=== PATIENT | male | born 1955 | race Caucasian/White ===

== ENCOUNTER 2025-07-11 14:47 | Inpatient (IN) | payer MEDICARE ==
[~2025-07-11] VITALS: Ht 180.3 cm; Wt 77.0 kg
[~2025-07-11 14:47] MED LIST: HYDMOR2 PO; LEVSOD25 PO; LOSHYD PO; OLME20-12. PO; PROM25 PO
[2025-07-11 15:25] LABS: BASOPHILS ABSOLUTE AUTO 0.11 K/mm3 (0.00-0.23); BASOPHILS PERCENT AUTO 1 % (0-2); EOSINOPHILS ABSOLUTE AUTO 0.00 K/mm3 (0.00-0.68); EOSINOPHILS PERCENT AUTO 0 % (0-6); Hematocrit 46.3 % (37.0-53.0); Hemoglobin 15.4 g/dL (13.5-17.5); IMMATURE GRAN ABSOLUTE AUTO 0.26 K/mm3 (0.00-0.10); IMMATURE GRAN PERCENT AUTO 2 % (0-1); LYMPHOCYTES ABSOLUTE AUTO 0.94 K/mm3 (0.84-5.20); LYMPHOCYTES PERCENT AUTO 6 % (21-46); MONOCYTES ABSOLUTE AUTO 1.08 K/mm3 (0.16-1.47); MONOCYTES PERCENT AUTO 7 % (4-13); Mean Corpuscular HGB Conc 33.3 g/dL (31.5-36.5); Mean Corpuscular Volume 95 fL (80-100); NEUTROPHILS ABSOLUTE AUTO 13.43 K/mm3 (1.96-9.15); NEUTROPHILS PERCENT AUTO 85 % (41-73); NRBC ABSOLUTE 0.00 K/mm3 (0.00-0.02); NRBC Auto 0.0 /100 WBC (0.0-0.2); Platelet Count 334 K/mm3 (150-400); RDW Coefficient Variation 12.2 % (11.7-14.2); RDW Standard Deviation 42.6 fL (35.1-46.3)
[2025-07-11 15:39] LABS: Alanine Aminotransfer (ALT/SGP 21.0 U/L (12-78); Albumin, Blood 3.7 g/dL (3.4-5.0); Albumin/Globulin Ratio 0.8 (0.8-1.8); Aspartate Aminotrans (AST/SGOT 11.0 U/L (12-37); Bilirubin, Direct 0.4 mg/dL (0.0-0.3); Bilirubin, Indirect 0.7 mg/dL (0.1-0.7); Bilirubin, Total 1.1 mg/dL (0.1-1.0); Blood Urea Nitrogen 27.0 mg/dL (8-24); Calcium, Blood 9.4 mg/dL (8.5-10.1); Chloride, Blood 100.0 mmol/L (98-108); Creatinine, Blood 0.9 mg/dL (0.60-1.20); Globulin, Blood 4.7 g/dL (2.2-4.0); Glucose, Blood 446.0 mg/dL (70-99); Magnesium, Blood 2.6 mg/dL (1.6-2.4); Phosphorus, Blood 4.4 mg/dL (2.5-4.9); Potassium, Blood 4.7 mmol/L (3.5-5.5); Sodium, Blood 130.0 mmol/L (136-145); Total Protein, Blood 8.4 g/dL (6.4-8.2)
[2025-07-11 15:44] LABS: Prothrombin Time Results 11.3 Sec (9.7-11.5)
[2025-07-11 15:46] LABS: Anion Gap 30.0 mmol/L (3-11); CO2, Blood 5.0 mmol/L (21-32)
[2025-07-11] MEDS ORDERED: NS 1,000 ML IV SCH (16:00)
[2025-07-11 16:30] LABS: pH Blood Venous 7.01 (7.34-7.37)
[2025-07-11 16:30] LABS: Source, Urine Foley catheter
[2025-07-11 16:50] LABS: Bilirubin, Urine Neg (Neg); Glucose Qualitative, Urine 4+ (Neg); Ketones, Urine 4+ (Neg); Leukocyte Esterase, Urine Neg (Neg); Protein, Urine 2+ (Neg); Specific Gravity, Urine 1.025 (1.003-1.022); Urobilinogen, Urine NORM (Normal)
[2025-07-11 17:01] LABS: Color, Urine Pale Yellow (P-Yellow)
[2025-07-11 17:03] LABS: Red Blood Cells, Urine 0-2 /hpf (0-2); White Blood Cells, Urine 0-2 /hpf (0-5)
[2025-07-11] MEDS ORDERED: Insulin Human Regular 100 UNIT in NS 100 ML IV SCH (17:40)
[2025-07-11] MEDS ORDERED: FLU VACC TS2025(65UP)/MF59C/PF 45 MCG/0.5 ML SYRINGE IM SCH (18:45)
[2025-07-11] MEDS ORDERED: Ondansetron HCl 2 MG / ML 2ML Vial IV PRN (18:45)
[2025-07-11] MEDS ORDERED: Labetalol HCL 5 MG/ML 4ML Injection (Single Dose) IV PRN (18:50)
[2025-07-11 20:00] VITALS: BP 123/102
[2025-07-11 20:52] LABS: Anion Gap 25.0 mmol/L (3-11); Blood Urea Nitrogen 27.0 mg/dL (8-24); CO2, Blood 8.0 mmol/L (21-32); Calcium, Blood 9.6 mg/dL (8.5-10.1); Chloride, Blood 108.0 mmol/L (98-108); Creatinine, Blood 0.93 mg/dL (0.60-1.20); Glucose, Blood 327.0 mg/dL (70-99); Potassium, Blood 3.7 mmol/L (3.5-5.5); Sodium, Blood 137.0 mmol/L (136-145)
[2025-07-11 21:00] VITALS: BP 119/77
[2025-07-11 21:21] LABS: pH Blood Venous 7.16 (7.34-7.37)
[2025-07-11 22:00] VITALS: BP 134/70
[2025-07-11] MEDS ORDERED: D5W-1/2NS 1,000 ML IV SCH (22:20)
[2025-07-11 23:00] VITALS: BP 112/73
[2025-07-11 23:44] LABS: Anion Gap 15.0 mmol/L (3-11); Blood Urea Nitrogen 25.0 mg/dL (8-24); CO2, Blood 15.0 mmol/L (21-32); Calcium, Blood 9.1 mg/dL (8.5-10.1); Chloride, Blood 114.0 mmol/L (98-108); Creatinine, Blood 0.83 mg/dL (0.60-1.20); Glucose, Blood 194.0 mg/dL (70-99); Potassium, Blood 3.6 mmol/L (3.5-5.5); Sodium, Blood 140.0 mmol/L (136-145)
[2025-07-12] VITALS (21 sets, daily range): BP systolic 87–153; BP diastolic 52–75
[2025-07-12 04:23] LABS: Influenza A/2009-H1 Not Detected (NOT DETECT); SARS-Cov-2 (COVID-19), BioFire Detected (NOT DETECT)
[2025-07-12 05:35] LABS: BASOPHILS ABSOLUTE AUTO 0.03 K/mm3 (0.00-0.23); BASOPHILS PERCENT AUTO 0 % (0-2); EOSINOPHILS ABSOLUTE AUTO 0.00 K/mm3 (0.00-0.68); EOSINOPHILS PERCENT AUTO 0 % (0-6); Hematocrit 35.3 % (37.0-53.0); Hemoglobin 12.5 g/dL (13.5-17.5); IMMATURE GRAN ABSOLUTE AUTO 0.07 K/mm3 (0.00-0.10); IMMATURE GRAN PERCENT AUTO 1 % (0-1); LYMPHOCYTES ABSOLUTE AUTO 0.65 K/mm3 (0.84-5.20); LYMPHOCYTES PERCENT AUTO 8 % (21-46); MONOCYTES ABSOLUTE AUTO 0.59 K/mm3 (0.16-1.47); MONOCYTES PERCENT AUTO 7 % (4-13); Mean Corpuscular HGB Conc 35.4 g/dL (31.5-36.5); Mean Corpuscular Volume 90 fL (80-100); NEUTROPHILS ABSOLUTE AUTO 6.63 K/mm3 (1.96-9.15); NEUTROPHILS PERCENT AUTO 83 % (41-73); NRBC ABSOLUTE 0.00 K/mm3 (0.00-0.02); NRBC Auto 0.0 /100 WBC (0.0-0.2); Platelet Count 209 K/mm3 (150-400); RDW Coefficient Variation 12.3 % (11.7-14.2); RDW Standard Deviation 40.2 fL (35.1-46.3)
[2025-07-12 05:56] LABS: Anion Gap 9.0 mmol/L (3-11); Blood Urea Nitrogen 19.0 mg/dL (8-24); CO2, Blood 20.0 mmol/L (21-32); Calcium, Blood 8.8 mg/dL (8.5-10.1); Chloride, Blood 116.0 mmol/L (98-108); Creatinine, Blood 0.69 mg/dL (0.60-1.20); Glucose, Blood 175.0 mg/dL (70-99); Potassium, Blood 3.5 mmol/L (3.5-5.5); Sodium, Blood 141.0 mmol/L (136-145)
[2025-07-12 06:08] LABS: CHOL/HDL RATIO 2.6; Cholesterol 169 mg/dL (50-200); HDL Cholesterol 64 mg/dL (>39); LDL/HDL RATIO 1.3; Low Density Lipoprotein Chol 83 mg/dL (0-110); Magnesium, Blood 2.3 mg/dL (1.6-2.4); Triglycerides 109 mg/dL (30-160); Very Low Density Lipoprot Chol 21 mg/dL (6-32)
--- NOTE | 2025-07-12 07:00 | NUR ---
SHIFT SUMMARY PT LYING IN BED IN NO APPARENT DISTRESS. ALERT AND ORIENTED, I THINK, THOUGH THE PT WILL NOT ANSWER ALL QUESTIONS. AFEBRILE. NO PAIN. PT HAS COVID. PRECAUTIONS INSTITUTED. SINUS RHYTHM IN THE 80'S WITH STABLE BP. RA PRODUCING SAT > 92%. COUGH PRESENT. NOTHING EXPECTORATED YET. NO CHEST PAIN OR SOB OR BM. WANG IN PLACE, DRAINING MILKY ORANGE URINE ALL OF THE SUDDEN. BEDSIDE SHIFT REPORT GIVEN TO DAY RN.
--- NOTE | 2025-07-12 08:00 | NUR ---
ASSUMPTION OF CARE RECEIVED REPORT FROM [facility] NURSE. PT IS RESTING WITH EYES CLOSED. PT WILL OPEN EYES TO VERBAL STIMULI AND TRACK BUT DOES NOT FOLLOW ANY COMMANDS. PT IN NSR WITH HR IN 70-80S, MAP >65. PT DENIES CHEST PAIN. PT ON RA, SPO2 >92%. PT COUGHS OCCASIONALLY, NONPRODUCTIVE. PT DENIES ABD PAIN. PT HAS WANG CATH IN PLACE PATENT AND DRAINING TO GRAVITY, DR. AWARE. INSULIN AND D5 DRIP INFUSING IN PIV. SCDS IN PLACE. CALL LIGHT WITHIN REACH WITH NO NEEDS EXPRESSED AT THIS TIME.
[2025-07-12] MEDS ORDERED: Enoxaparin 40 MG/0.4 ML SYR SC SCH (09:00)
[2025-07-12 10:58] LABS: Alanine Aminotransfer (ALT/SGP 14.0 U/L (12-78); Albumin, Blood 2.6 g/dL (3.4-5.0); Albumin/Globulin Ratio 0.7 (0.8-1.8); Anion Gap 8.0 mmol/L (3-11); Aspartate Aminotrans (AST/SGOT 10.0 U/L (12-37); Bilirubin, Total 0.6 mg/dL (0.1-1.0); Blood Urea Nitrogen 16.0 mg/dL (8-24); CO2, Blood 22.0 mmol/L (21-32); Calcium, Blood 9.0 mg/dL (8.5-10.1); Chloride, Blood 114.0 mmol/L (98-108); Creatinine, Blood 0.77 mg/dL (0.60-1.20); Globulin, Blood 3.7 g/dL (2.2-4.0); Glucose, Blood 160.0 mg/dL (70-99); Potassium, Blood 3.4 mmol/L (3.5-5.5); Sodium, Blood 141.0 mmol/L (136-145); Total Protein, Blood 6.3 g/dL (6.4-8.2)
--- NOTE | 2025-07-12 18:17 | NUR ---
SHIFT SUMMARY PT HAS BEEN RESTING WITH EYES CLOSED T/O SHIFT. PT WILL AWAKE TO VERBAL STIMULI. PT WILL OPEN EYES, TRACK NURSE AND NOD HIS HEAD, BUT WILL NOT VERBALLY ANSWER QUESTIONS OR FOLLOW COMMANDS. PT IS ON RA, SPO2 >90%. PT DENIES SOB. HR IN 70-80S, MAP >65. PT HAD EPISODES OF TACHYCARDIA INTO 150S, NOT SUSTAINED. PT HAD 5 BEATS OF VTACH, NOT SUSTAINED. EPISODE IN CHART. PT DID NOT HAVE ANY TACHYCARDIA OR ARRYTHMIA ONCE POTASSIUM WAS REPLACED. PT DOES NOT VERBALIZE/INDICATE A SPECIFIC PLACE OF DISCOMFORT BUT RETRACTS/STARTLES FROM EVEN LIGHT TOUCH. PT HAS WANG CATH IN PLACE, PATENT AND DRAINING TO GRAVITY. OUTPUT IS ORANGE AND MILKY, DR WAHL. TMAX OF 100.4, DR WAHL. BLOOD CULTURES WERE DRAWN. INSULIN DRIP T/O SHIFT. SCDS IN PLACE. TWO PIVS, WNL. DAUGHTER WAS AT BEDSIDE FOR PORTION OF SHIFT. CALL LIGHT WITHIN REACH WITH NO NEEDS EXPRESSED AT THIS TIME.
[2025-07-13] VITALS (15 sets, daily range): BP systolic 101–138; BP diastolic 64–81
[2025-07-13 01:57] LABS: BASOPHILS ABSOLUTE AUTO 0.02 K/mm3 (0.00-0.23); BASOPHILS PERCENT AUTO 0 % (0-2); EOSINOPHILS ABSOLUTE AUTO 0.01 K/mm3 (0.00-0.68); EOSINOPHILS PERCENT AUTO 0 % (0-6); Hematocrit 34.5 % (37.0-53.0); Hemoglobin 12.3 g/dL (13.5-17.5); IMMATURE GRAN ABSOLUTE AUTO 0.08 K/mm3 (0.00-0.10); IMMATURE GRAN PERCENT AUTO 1 % (0-1); LYMPHOCYTES ABSOLUTE AUTO 0.61 K/mm3 (0.84-5.20); LYMPHOCYTES PERCENT AUTO 11 % (21-46); MONOCYTES ABSOLUTE AUTO 0.37 K/mm3 (0.16-1.47); MONOCYTES PERCENT AUTO 7 % (4-13); Mean Corpuscular HGB Conc 35.7 g/dL (31.5-36.5); Mean Corpuscular Volume 89 fL (80-100); NEUTROPHILS ABSOLUTE AUTO 4.44 K/mm3 (1.96-9.15); NEUTROPHILS PERCENT AUTO 80 % (41-73); NRBC ABSOLUTE 0.00 K/mm3 (0.00-0.02); NRBC Auto 0.0 /100 WBC (0.0-0.2); Platelet Count 173 K/mm3 (150-400); RDW Coefficient Variation 12.3 % (11.7-14.2); RDW Standard Deviation 39.8 fL (35.1-46.3)
[2025-07-13 02:18] LABS: Alanine Aminotransfer (ALT/SGP 13.0 U/L (12-78); Albumin, Blood 2.1 g/dL (3.4-5.0); Albumin/Globulin Ratio 0.6 (0.8-1.8); Anion Gap 7.0 mmol/L (3-11); Aspartate Aminotrans (AST/SGOT 13.0 U/L (12-37); Bilirubin, Total 0.6 mg/dL (0.1-1.0); Blood Urea Nitrogen 7.0 mg/dL (8-24); CO2, Blood 23.0 mmol/L (21-32); Calcium, Blood 8.4 mg/dL (8.5-10.1); Chloride, Blood 113.0 mmol/L (98-108); Creatinine, Blood 0.67 mg/dL (0.60-1.20); Globulin, Blood 3.7 g/dL (2.2-4.0); Glucose, Blood 183.0 mg/dL (70-99); Potassium, Blood 2.7 mmol/L (3.5-5.5); Sodium, Blood 140.0 mmol/L (136-145); Total Protein, Blood 5.8 g/dL (6.4-8.2)
--- NOTE | 2025-07-13 02:58 | NUR ---
UPDATE CALLED DR. DURAN ABOUT PATIENT'S POTASSIUM OF 2.7. DOCTOR ORDERED 40MEQ OF KCL AND TOLD NURSE TO STOP D5 1/2 AND INSULIN FOR NOW.
--- NOTE | 2025-07-13 06:22 | NUR ---
SHIFT SUMMAR PATIENT NODS YES OR NO TO QUESTIONS. ORIENTED TO SELF AND PERSON. DAUGHTER AT BEDSIDE FOR ABOUT 3 HOURS. PATIENT MOVES SELF AROUND IN BED. HR 70-80'S AND SBP 120-130'S. PATIENT ON ROOMAIR SATTING 93%. PATIENT HAS WANG DRAINING TO GRAVITY. LEFT AC AND LEFT FOREARM PERIPHERAL IV'S. PATIENT ON INSULIN 2.7U AND D51/2 200AT BEGIN OF SHIFT. MD DURAN PUT MEDS ON HOLD DUE TO LABS. POTASSIUM LEVEL 2.7. KCL 40MEQ INFUSING NOW NEW ORDERS FOR CHEM 8 LAB @ 7AM AND 11AM. BLLOD SUGAR q1 HOUR. CALL LIGHT WITHIN REACH.
[2025-07-13 07:51] LABS: Anion Gap 12.0 mmol/L (3-11); Blood Urea Nitrogen 10.0 mg/dL (8-24); CO2, Blood 20.0 mmol/L (21-32); Calcium, Blood 8.6 mg/dL (8.5-10.1); Chloride, Blood 112.0 mmol/L (98-108); Creatinine, Blood 0.63 mg/dL (0.60-1.20); Glucose, Blood 306.0 mg/dL (70-99); Potassium, Blood 3.5 mmol/L (3.5-5.5); Sodium, Blood 140.0 mmol/L (136-145)
--- NOTE | 2025-07-13 09:33 | NUR ---
ASSUMPTION OF CARE RECEIVED REPORT FROM [facility] NURSE. PT IS SLEEPING BUT AWAKENS TO VERBAL STIMULI. PT STATED HE WAS AT A HOSPITAL BUT WAS UNSURE OF WHAT HOSPITAL. PT ANSWERED QUESTIONS APPROPRIATELY AND FOLLOWED COMMMANDS. PT ON RA, SPO2 >92%. OCCASIONAL NONPRODUCTIVE COUGH. PT IN NSR, HR IN 70-80S, MAP >65. SBP IN 110-130S. PT DENIES CHEST PAIN/PRESSURE AND SOB. WANG CATH IN PLACE, PATENT AND DRAINGING TO GRAVITY. PT HAD LARGE INCONTINENT LIQUID BOWEL MOVEMENT. PT REPORTED HAVING AN APPETITE AND THIRSTY, ADVANCING DIET APPROPRIATE. SCDS IN PLACE. CALL LIGHT WITHIN REACH WITH NO NEEDS EXPRESSED AT THIS TIME.
[2025-07-13] MEDS ORDERED: Insulin Glargine 100 Unit/ML 3 ML SYR SC ONE (09:55)
[2025-07-13] MEDS ORDERED: Insulin Regular 100 UNIT/ML 10ML Vial SC SCH (11:30)
[2025-07-13 14:48] LABS: Magnesium, Blood 2.0 mg/dL (1.6-2.4)
[2025-07-13 14:54] LABS: Anion Gap 11.0 mmol/L (3-11); Blood Urea Nitrogen 14.0 mg/dL (8-24); CO2, Blood 21.0 mmol/L (21-32); Calcium, Blood 8.4 mg/dL (8.5-10.1); Chloride, Blood 107.0 mmol/L (98-108); Creatinine, Blood 0.62 mg/dL (0.60-1.20); Glucose, Blood 353.0 mg/dL (70-99); Phosphorus, Blood 1.1 mg/dL (2.5-4.9); Potassium, Blood 3.4 mmol/L (3.5-5.5); Sodium, Blood 136.0 mmol/L (136-145)
[2025-07-13] MEDS ORDERED: Potassium Phosphate Dibasic 30 MM in Dextrose 5% 500 ML IV ONE (15:25)
--- NOTE | 2025-07-13 18:24 | NUR ---
SHIFT SUMMARY PT MORE ALERT AND ORIENTED T/O SHIFT. REORIENTED PT THIS AM AND AT 1600 NEURO CHECK PT WAS ABLE TO ANSWER ALL NEURO QUESTIONS CORRECTLY. PT ON RA, SPO2 >92%. PT IN NSR, HR IN 70-80S, MAP >65 WITH SBP IN 120S. PT DENIED SOB AND CHEST PAIN/PRESSURE. PT OFF INSULIN DRIP. PT HAD 2 LARGE INCONTINENT BM. BM LOOSE DIARRHEA X2. WANG CATH IN PLACE, PATENT AND DRAINING TO GRAVITY. ADVANCED DIET, TOLERATING WELL WITH NO COMPLAINTS OF N/V. SCDS IN PLACE. BED BATH PERFORMED. AMI PIV DC'D. TWO PIVS, LFA AND RFA. PT DENIES ANY PAIN. STATUS CHANGE TO MED WITH NO TELEY. CALL LIGHT WITHIN REACH WITH NO NEEDS EXPRESSED AT THIS TIME.
[2025-07-13] MEDS ORDERED: Insulin Glargine 100 Unit/ML 3 ML SYR SC SCH (21:00)
[2025-07-14] VITALS (7 sets, daily range): BP systolic 98–129; BP diastolic 57–82
[2025-07-14 03:36] LABS: BASOPHILS ABSOLUTE AUTO 0.02 K/mm3 (0.00-0.23); BASOPHILS PERCENT AUTO 0 % (0-2); EOSINOPHILS ABSOLUTE AUTO 0.01 K/mm3 (0.00-0.68); EOSINOPHILS PERCENT AUTO 0 % (0-6); Hematocrit 30.4 % (37.0-53.0); Hemoglobin 10.8 g/dL (13.5-17.5); IMMATURE GRAN ABSOLUTE AUTO 0.10 K/mm3 (0.00-0.10); IMMATURE GRAN PERCENT AUTO 2 % (0-1); LYMPHOCYTES ABSOLUTE AUTO 0.98 K/mm3 (0.84-5.20); LYMPHOCYTES PERCENT AUTO 20 % (21-46); MONOCYTES ABSOLUTE AUTO 0.31 K/mm3 (0.16-1.47); MONOCYTES PERCENT AUTO 6 % (4-13); Mean Corpuscular HGB Conc 35.5 g/dL (31.5-36.5); Mean Corpuscular Volume 90 fL (80-100); NEUTROPHILS ABSOLUTE AUTO 3.43 K/mm3 (1.96-9.15); NEUTROPHILS PERCENT AUTO 71 % (41-73); NRBC ABSOLUTE 0.00 K/mm3 (0.00-0.02); NRBC Auto 0.0 /100 WBC (0.0-0.2); Platelet Count 168 K/mm3 (150-400); RDW Coefficient Variation 12.2 % (11.7-14.2); RDW Standard Deviation 39.8 fL (35.1-46.3)
[2025-07-14 04:07] LABS: Alanine Aminotransfer (ALT/SGP 16.0 U/L (12-78); Albumin, Blood 1.8 g/dL (3.4-5.0); Albumin/Globulin Ratio 0.5 (0.8-1.8); Anion Gap 9.0 mmol/L (3-11); Aspartate Aminotrans (AST/SGOT 22.0 U/L (12-37); Bilirubin, Total 0.6 mg/dL (0.1-1.0); Blood Urea Nitrogen 11.0 mg/dL (8-24); CO2, Blood 24.0 mmol/L (21-32); Calcium, Blood 8.3 mg/dL (8.5-10.1); Chloride, Blood 109.0 mmol/L (98-108); Creatinine, Blood 0.66 mg/dL (0.60-1.20); Globulin, Blood 3.7 g/dL (2.2-4.0); Glucose, Blood 274.0 mg/dL (70-99); Potassium, Blood 3.2 mmol/L (3.5-5.5); Sodium, Blood 139.0 mmol/L (136-145); Total Protein, Blood 5.5 g/dL (6.4-8.2)
--- NOTE | 2025-07-14 04:21 | NUR ---
ASSUMED CARE OF PT AT 1900. PT AXOX4 AND ABLE TO USE CALL LIGHT APPROPRIATELY. ALL VSS. WANG IN PLACE AND DRAINING TO GRAVITY. 3,300ML OF UOP. POTASSIUM CAME BACK AT 3.2 ORDERS RECIEVED TO REPLACE WITH 40MEQ KCL PO. LR RUNNING AT 125ML/HR. BED IN LOWEST POSITION AND CALL LIGHT WITHIN REACH. PT NOW MEDICAL STATUS AND AWAITING BED PLACEMENT.
[2025-07-14 06:29] LABS: Phosphorus, Blood 1.8 mg/dL (2.5-4.9)
[2025-07-14] MEDS ORDERED: Potassium Phosphate Dibasic 15 MM in Dextrose 5% 250 ML IV ONE (06:45)
--- NOTE | 2025-07-14 08:00 | NUR ---
ASSUMPTION OF CARE RECEIVED REPORT FROM [facility] NURSE. PT IS A&OX4, USES CALL LIGHT AND MAKES NEEDS KNOWN. PT ON RA, SPO2>92% HR IN NSR, HR IN 70-80S MAP >65 WITH SBP 110-120S. PT DENIES N/V, NO BM TODAY. WANG CATH IN PLACE, PATENT AND DRAINING TO GRAVITY. TWO PIVS, WNL. CALL LIGHT WITHIN REACH WITH NO NEEDS EXPRESSED AT THIS TIME.
[2025-07-14] MEDS ORDERED: MetFORMIN HCl 500 mg PO SCH ×2 (10:00→17:00)
--- NOTE | 2025-07-14 10:19 | NUR ---
REPORT/TRANSFER.... REPORT GIVEN TO MEDICAL FLOOR RN. ALL PT'S BELONGINGS PACKED AND READY TO GO WITH THE PT. PT'S VSS. PT'S DAUGHTER NOTIFIED OF THE TRANSFER BY THIS RN.
--- NOTE | 2025-07-14 18:27 | NUR ---
PT A/OX4. PLEASANT AND COOPERATIVE WITH CARE. PTS WANG WAS D/C'D TODAY. PT DID REQUIRE A STRAIGHT CATH FOR RETENTION. HE REPORTED NO SX OF URINE RETENTION. PT IS INCONTINENT OF VOIDS. AT BL HE IS INDEPENDENT, HE HAS BEEN BEDREST SINCE ARRIVAL. PT IS CURRENTLTY RESTING IN BED. CHEST RISE AND FALL IS SYMMETRICAL. CALL LIGHT IS IN REACH. NO ACUTE NEEDS AT THIS TIME.
[2025-07-14] MEDS ORDERED: Insulin Glargine 100 Unit/ML 3 ML SYR SC SCH (21:00)
[2025-07-15 03:45] VITALS: BP 119/82
--- NOTE | 2025-07-15 03:59 | NUR ---
JUNIOR BOOKKEEPER SUMMARY VSS. BLOOD SUGAR AT HS WAS 337, INSULIN COVERAGE GIVEN, SEE DOCUMENTATION. A/O X 4. COOPERATIVE WITH CARE. ON DROPLET ISOLATION. INCONT OF URINE, LINEN CHANGED. HAS BEEN RESTING QUIETLY WITH OCCASIONAL INTERRUPTION. CALL LIGHT IN REACH, ARILS UP X 2 AND BED IN LOW POSITION FOR SAFETY. WILL CONT TO MONITOR
[2025-07-15 06:12] LABS: BASOPHILS ABSOLUTE AUTO 0.05 K/mm3 (0.00-0.23); BASOPHILS PERCENT AUTO 1 % (0-2); EOSINOPHILS ABSOLUTE AUTO 0.03 K/mm3 (0.00-0.68); EOSINOPHILS PERCENT AUTO 1 % (0-6); Hematocrit 33.4 % (37.0-53.0); Hemoglobin 11.9 g/dL (13.5-17.5); IMMATURE GRAN ABSOLUTE AUTO 0.17 K/mm3 (0.00-0.10); IMMATURE GRAN PERCENT AUTO 3 % (0-1); LYMPHOCYTES ABSOLUTE AUTO 1.16 K/mm3 (0.84-5.20); LYMPHOCYTES PERCENT AUTO 18 % (21-46); MONOCYTES ABSOLUTE AUTO 0.29 K/mm3 (0.16-1.47); MONOCYTES PERCENT AUTO 4 % (4-13); Mean Corpuscular HGB Conc 35.6 g/dL (31.5-36.5); Mean Corpuscular Volume 89 fL (80-100); NEUTROPHILS ABSOLUTE AUTO 4.89 K/mm3 (1.96-9.15); NEUTROPHILS PERCENT AUTO 74 % (41-73); NRBC ABSOLUTE 0.00 K/mm3 (0.00-0.02); NRBC Auto 0.0 /100 WBC (0.0-0.2); Platelet Count 210 K/mm3 (150-400); RDW Coefficient Variation 12.0 % (11.7-14.2); RDW Standard Deviation 38.9 fL (35.1-46.3)
[2025-07-15 06:52] LABS: Anion Gap 8.0 mmol/L (3-11); Blood Urea Nitrogen 13.0 mg/dL (8-24); CO2, Blood 26.0 mmol/L (21-32); Calcium, Blood 8.5 mg/dL (8.5-10.1); Chloride, Blood 107.0 mmol/L (98-108); Creatinine, Blood 0.52 mg/dL (0.60-1.20); Glucose, Blood 234.0 mg/dL (70-99); Phosphorus, Blood 2.1 mg/dL (2.5-4.9); Potassium, Blood 3.2 mmol/L (3.5-5.5); Sodium, Blood 138.0 mmol/L (136-145)
[2025-07-15 07:57] VITALS: BP 116/79
[2025-07-15 15:16] VITALS: BP 105/73
[2025-07-15] MEDS ORDERED: MetFORMIN HCl 500 mg PO SCH (17:00)
[2025-07-15] MEDS ORDERED: Sodium Phosphate Mono/Dibasic 250 MG Tab PO SCH (17:00)
[2025-07-15 19:22] VITALS: BP 115/70
[2025-07-15] MEDS ORDERED: Insulin Glargine 100 Unit/ML 3 ML SYR SC SCH (21:00)
--- NOTE | 2025-07-16 04:11 | NUR ---
COORDINATOR OF REHABILITATION SERVICES SUMMARY VSS. ALERT AND ORIENTED TO QUESTIONS ASKED. REMAINS ON CONTACT/DROPLET PRECAUTIONS. ACCU CHECKS /HS. INSULIN COVERAGE GIVEN - SEE MAR FOR MED DETAILS. INCONT OF URINE INTERMITTENTLY, CHANGED NEEDED. UP WITH OBS/ASSIST NEEDED. HAS BEEN RESTING QUIETLY WITH FEW INTERRUPTIONS NOTED. CALL LIGHT IN REACH, RAILS UP X 2 AND BED IN LOW POSITION FOR SAFETY. WILL CONT TO MONITOR.
[2025-07-16 04:58] VITALS: BP 96/54
[2025-07-16 05:28] LABS: BASOPHILS ABSOLUTE AUTO 0.03 K/mm3 (0.00-0.23); BASOPHILS PERCENT AUTO 1 % (0-2); EOSINOPHILS ABSOLUTE AUTO 0.07 K/mm3 (0.00-0.68); EOSINOPHILS PERCENT AUTO 1 % (0-6); Hematocrit 34.7 % (37.0-53.0); Hemoglobin 12.2 g/dL (13.5-17.5); IMMATURE GRAN ABSOLUTE AUTO 0.17 K/mm3 (0.00-0.10); IMMATURE GRAN PERCENT AUTO 3 % (0-1); LYMPHOCYTES ABSOLUTE AUTO 1.29 K/mm3 (0.84-5.20); LYMPHOCYTES PERCENT AUTO 22 % (21-46); MONOCYTES ABSOLUTE AUTO 0.47 K/mm3 (0.16-1.47); MONOCYTES PERCENT AUTO 8 % (4-13); Mean Corpuscular HGB Conc 35.2 g/dL (31.5-36.5); Mean Corpuscular Volume 90 fL (80-100); NEUTROPHILS ABSOLUTE AUTO 3.83 K/mm3 (1.96-9.15); NEUTROPHILS PERCENT AUTO 65 % (41-73); NRBC ABSOLUTE 0.00 K/mm3 (0.00-0.02); NRBC Auto 0.0 /100 WBC (0.0-0.2); Platelet Count 209 K/mm3 (150-400); RDW Coefficient Variation 11.9 % (11.7-14.2); RDW Standard Deviation 38.8 fL (35.1-46.3)
[2025-07-16 07:06] LABS: Anion Gap 7.0 mmol/L (3-11); Blood Urea Nitrogen 15.0 mg/dL (8-24); CO2, Blood 30.0 mmol/L (21-32); Calcium, Blood 8.9 mg/dL (8.5-10.1); Chloride, Blood 102.0 mmol/L (98-108); Creatinine, Blood 0.75 mg/dL (0.60-1.20); Glucose, Blood 290.0 mg/dL (70-99); Potassium, Blood 3.2 mmol/L (3.5-5.5); Sodium, Blood 136.0 mmol/L (136-145)
[2025-07-16 07:26] VITALS: BP 136/79
--- NOTE | 2025-07-16 12:07 | NUR ---
Pt. is awake in bed when he welcomes my visit. Pt. displays evidence of being pleased with this radio division captain's visit. Pt. is known to this radio division captain from the community. Faciliated an update of the Pts. physical and spiritual condition. Pt. displays evidence of a high level of trust, but shares some of the issues he faces at home (eg. no electricity, food limitations). Listen with a calming presence. Prayed with the Pt. Pt. displayed evidence of wanting further conversation. After several moments, the Pt. verbalized gratitude for the spiritual care visit.
--- NOTE | 2025-07-16 13:08 | NUR ---
DIABETIC EDUCATION BREAK NURSE WENT IN TO WALK PT THROUGHT DOING HIS INSULIN COVERAGE. PT STATRED HER COULDN'T SEE THE GRADUATIONS ON THE SYRINGE. HE NNEDED READING GLASSES. A PAIR WAS PROVIDED TO HIM. HE THEN STATED THAT HE USED A MAGNIFYING GLASS AT HOME. HE DECLINED TO LOOK AT THE SLIDING SCALE OR INERACT/TALK ABOUT IT.
[2025-07-16] MEDS ORDERED: Alogliptin Benzoate 25 MG TAB PO SCH (15:00)
[2025-07-16 15:23] VITALS: BP 131/89
[2025-07-16] MEDS ORDERED: Insulin Human Lispro 100 Units/ML 3ML Syringe SC SCH (16:30)
--- NOTE | 2025-07-16 17:24 | NUR ---
NOTE PT ALERT, SITTING UP INTHE CHAIR. SEE EARLIER NOTE. VSS. OFFERED TO TEACH PT ABOUT THE INSULIN PEN. HE REFUSED. PT HAS HAD MULTIPLE GROSSLY INCONTINENT URINES. ASKED PT RELATED THAT WHEN HE FEELS THE URGE HE JUST "LETS IT FLY." PT HAS PULL UP ON. CURRENTLY ATTEMPTING A TOILETING PLAN. OFFERING TO HELP PT TO THE BATHROOM EVERY 2 HOURS. DENIED PAIN, SOB OR DIZZINESS.
[2025-07-16 20:03] VITALS: BP 101/68
[2025-07-17 04:07] VITALS: BP 105/82
--- NOTE | 2025-07-17 04:39 | NUR ---
BANKRUPTCY MANAGER SUMMARY VSS. UP WITH OBSERVATION, MORE ACTIVE TONIGHT COMPARED TO THAT OF PREVIOUS NIGHTS. HAD VISIT FROM DAUGHTER EARLIER. A/O X 4. HS GLUCOSE LEVEL 179, WHICH WAS LOWER THAN NOTED THE PREVIOUS EVENINGS WELL. ENCOURAGED TO COMPLY WITH DIETARY RESTRICTIONS. HAS BEEN RESTING QUIETLY WITH FEW INTERRUPTIONS THROUGHOUT NOCT, INCONT OF URINE ANDD LINEN CHANGED. CALL LIGHT IN REACH, RAILS UP X 2 AND BED IN LOW POSITION FOR SAFETY.
[2025-07-17 06:16] LABS: Anion Gap 8.0 mmol/L (3-11); Blood Urea Nitrogen 9.0 mg/dL (8-24); CO2, Blood 30.0 mmol/L (21-32); Calcium, Blood 8.8 mg/dL (8.5-10.1); Chloride, Blood 103.0 mmol/L (98-108); Creatinine, Blood 0.72 mg/dL (0.60-1.20); Glucose, Blood 262.0 mg/dL (70-99); Potassium, Blood 3.6 mmol/L (3.5-5.5); Sodium, Blood 137.0 mmol/L (136-145)
[2025-07-17 07:19] VITALS: BP 119/84
--- NOTE | 2025-07-17 12:48 | NUR ---
Pt. is awake and sitting up in cahir in his room when he welcomes my visit. Rapport is quickly re-established. Considered matters of meena, health and family. Pt. verbalized his intention to take better care of himself. Pt. displayed evidence of being encouraged and he verbalized gratitude for the spiritual care visit.
[2025-07-17 15:48] VITALS: BP 94/58
--- NOTE | 2025-07-17 18:49 | NUR ---
SHIFT SUMMARY PATIENT ALERT AND INTERACTIVE. PATIENT PARTICIPATED WITH THERAPY AND WALKED AROUND THE ROOM. PATIENT DENIED SOB OR COUGH. PATIENT CONTINUES TO BE IN ISOLATION FOR COVID. BLOOD SUGARS CONTINUE TO BE ELEVATED WITH ORAL AGENTS. PROVIDERS AWARE..
[2025-07-17 21:19] VITALS: BP 101/63
[2025-07-18] VITALS (7 sets, daily range): BP systolic 76–112; BP diastolic 59–74
--- NOTE | 2025-07-18 04:44 | NUR ---
SHIFT SUMMARY PATIENT A/OX3-4, PLEASANT AND COOPERATIVE WITH CARE. IMPULSIVE AND HIGH FALL RISK, VERY UNSTEADY ON HIS FEET. PATIENT REPORTS PREVIOUSLY REFUSED INSULIN AT HOME DUE TO DIFFICULTY READING THE INSULIN SYRINGES AND UNABLE TO DETERMINE THE AMOUNT OF INSULIN TO ADMINISTER. IF ADAPTATIONS WERE MADE, PATIENT STATES WOULD BE AGREEABLE TO TAKING INSULIN AT HOME. NO OTHER CONCERNS AT THIS TIME, WILL CONTINUE TO MONITOR.
[2025-07-18] MEDS ORDERED: NS 500 ML IV ONE (05:40)
[2025-07-18 06:59] LABS: Anion Gap 10.0 mmol/L (3-11); Blood Urea Nitrogen 19.0 mg/dL (8-24); CO2, Blood 26.0 mmol/L (21-32); Calcium, Blood 9.3 mg/dL (8.5-10.1); Chloride, Blood 102.0 mmol/L (98-108); Creatinine, Blood 0.76 mg/dL (0.60-1.20); Glucose, Blood 211.0 mg/dL (70-99); Potassium, Blood 3.5 mmol/L (3.5-5.5); Sodium, Blood 134.0 mmol/L (136-145)
--- NOTE | 2025-07-18 10:34 | NUR ---
AM NOTE: PATIENT ALERT AND ORIENTED X3-4. FORGETFUL/IMPULSIVE AND NOT USING CALL LIGHT. POOR HISTORIAN. PERRLA. READING GLASSES AT BEDSIDE. UP WITH FWW AND GAIT BELT. MOVING ALL EXTREMITIES. DENIES PAIN. ON ROOM AIR SATING ABOVE 95%. DENIES SOB/COUGH. BOWEL TONES PRESENT DENIES ABDOMINAL PAIN/NAUSEA. ACHS BLOOD SUGARS. DIABETES EDUCATION THIS MORNING WITH MED PASS. BOWEL MOVEMENT X1 WITH THIS RN. MEDS WITH APPLESAUCE. ATTENDS IN PLACE. DENIES CHEST PAIN/PRESSURE/PALPIATIONS. BLOOD PRESSURE 111/69. DENIES DIZZINESS. NO EDEMA NOTED. PHYSICAL THERAPY IN ROOM THIS AM. SKIN C/D/I. DENIES NEEDS AT THIS TIME. BED ALARM IN PLACE. CALL LIGHT IN REACH. THIS RN REPORTED OFF TO SHEILA MAN AT 1000.
--- NOTE | 2025-07-18 15:31 | NUR ---
Pt. is awake in bed and welcomes my visit. Rapport is quickly re-established as the Pt. is known to this subject scientific research from the community. Pt. verbalizes some unkown expectations of what will happen when he is discharged. Normalize the Pt. experience. Pt. displays evidence of understanding and agreement. Listen with empathy and a calming presence. Pt. displays evidence of being encouraged by the visit and welcomes the subject scientific research to return.
--- NOTE | 2025-07-18 16:15 | NUR ---
SHIFT SUMMARY ASSUMED CARE OF THE PATIENT AT 1000 TODAY. GERONIMO RN AGREES WITH PREVIOUS RNS ASSESSMENT. PT BLOOD SUGARS IN THE 200S TODAY. PT HAS TRIED 3 DIFFERENT PAIRS OF "READER" GLASSES THAT WERE LOCATED ON THE UNIT. ALL OF WHICH HE STATES HE CANNOT SEE THE NUMBER ON THE INSULIN PEN WHEN ASKED. THIS WAS RELAYED TO DR. [place] AND DC IS DELAYED FOR TODAY. PT PLEASANT & COOPERATIVE IN ROOM. CALL LIGHT IN REACH. DENIES OTHER NEEDS AT THIS TIME. VS REVIEWED.
--- NOTE | 2025-07-18 18:05 | NUR ---
FAMILY BROUGHT IN GLASSES PT BROUGHT IN GLASSES FROM HOME FOR PT TO TRY TO READ HIS INSULIN PENS. PT WAS UNABLE TO RED THE NUMBER 2 OR 6. PT DID SAY HE COULD SEE THE 20 ON THE PEN. CONCERN FOR HOW WELL PT WILL BE ABLE TO READ PENS AT HOME IS STILL INTACT.
[2025-07-19 03:11] VITALS: BP 102/71
--- NOTE | 2025-07-19 06:36 | NUR ---
SHIFT SUMMARY PATIENT A/OX3-4, IMPULSIVE AND DOES NOT USE CALL LIGHT FOR ASSISTANCE. PLEASANT AND COOPERATIVE WITH CARE. DISCHARGE MEDICATIONS FAXED TO PATIENT S PREFERRED PHARMACY, [facility]. PATIENT FAMILY AT BEDSIDE DURING START OF SHIFT AND STATED PATIENT WOULD BE STAYING WITH THEM UPON DISCHARGE. RECOMMENDED TO FAMILY AND PATIENT THAT PATIENT SEES AN PLASTIC TOOL MAKER AFTER DISCHARGE FOR VISUAL IMPAIRMENT PATIENT IS UNABLE TO READ INSULIN PEN NUMBERS AND IS UNSAFE TO ADMINISTER INSULIN AT HOME INDEPENDENTLY AT THIS TIME. MULTIPLE READER GLASSES WERE PROVIDED TO PATIENT BY DAY SHIFT RN AND ALL WERE INEFFECTIVE, PATIENT CONTINUED TO STATE NUMBERS WERE TO BLURRY TO READ. FAMILY STATED THEY WERE RECEPTIVE AND WILLING TO ASSIST PATIENT IN SCHEDULING NEEDED FOLLOW UP APPOINTMENTS. PATIENT CONTINENT AND INCONTINENT, ATTENDS IN PLACE. REMAINS ON DROPLET ISOLATION FOR POSITIVE COVID TEST. UNSTEADY GAIT. BP REMAINS SOFT. NO OTHER CONCERNS AT THIS TIME.
[2025-07-19 06:44] VITALS: BP 111/79
[2025-07-19 07:52] VITALS: BP 104/74
--- NOTE | 2025-07-19 10:41 | NUR ---
1040 CALL PLACED TO [facility]. NO ONE ANSWERED THE PHONE, HOWEVER, THE VOICEMAIL WAS NAME IDENTIFIED AND SO I LEFT A MESSAGE STATING TO PLEASE CALL THE [facility] NURSE BACK AT MY DESK EXT.
--- NOTE | 2025-07-19 11:20 | NUR ---
1105 SPOKE WITH DAUGHTER CARLEEN. CARLEEN INFORMED THIS RN THAT WATER HAS BEEN TURNED ON TO THE PATIENTS HOME, SHE IS STILL WORKING ON THE ELECTRIC. CARLEEN ALSO INFORMED THIS RN THAT PATIENT HAS ESTABLISH APPT WITH PCP AT [facility]. FABIANSTEPH HAS ALSO MADE APPT TO SET UP [facility] MEDICAID FOR THE PATIENT ON 07/25. DAUGHTER HAS CONCERNS ABOUT CARING FOR PATIENT IN HER HOME DURING THE WEEK DUE TO HER AND WORKING WEBSITE DESIGNER. I DISCUSSED ALL THIS INFORMATION WITH WENDI BAIRD TODAY.
[2025-07-19 15:00] VITALS: BP 123/80
--- NOTE | 2025-07-19 16:06 | NUR ---
P.elvis is awake in bed and visiting with his friend Sonu when I visit. Both Pt. and Sonu are known to this separator operator from the community. Factilitated some life review and story telling. Pt. displayed a bouyant spirit. Prayed with the Pt. Pt. verbalized that he hopes to discharge soon and also verbalized gratitude for the spiritual care visits.
--- NOTE | 2025-07-19 18:26 | NUR ---
SHIFT SUMMARY PATIENT IS A&OX3-4. HE IS ON ROOM AIR AND IS A STAND BY ASSIST. CONTINENT AND INCONTIENT WITHOUT EPISODES OF INCONTINENCE THIS SHIFT. FAMILY IS BY TO VISIT. NO TELE. BLOOD SUGARS HAVE REMAINED AROUND 180'S TODAY. THIS RN CALLED AND SPOKE WITH PATIENTS DAUGHTER CARLEEN WHO REPORTED SHE HAS MADE PATIENT AN APPT TO ESTABLISH WITH A PCP, AND SHE HAS RESTORED WATER TO HIS RESIDENCE, WELL SET UP AN APPT TO GET HIM SET UP WITH LONG-TERM CARE MEDICAID. CURRENTLY DAUGHTER HAS CONCERNS ABOUT NOT BEING ABLE TO CARE FOR HIM IN HER HOME DURING WEEKDAYS SHE WORKS SUBSTANCE ABUSE COUNSELOR. PATIENT IS CURRENTLY HAVING DINNER WITH FAMILY, BED IS LOW AND LOCKED, CALL LIGHT IN REACH.
[2025-07-19 19:41] VITALS: BP 101/72
[2025-07-20 04:28] VITALS: BP 106/78
[2025-07-20 07:08] VITALS: BP 114/77
--- NOTE | 2025-07-20 07:34 | NUR ---
SHIFT SUMMARY PATIENT A&OX3-4, GOT HIS BIRTHDATE WRONG, SOMETIMES UNABLE TO MAKE IT TO USE THE RESTROOM AND WETS HIS ATTENDS. IMPULSIVE YET STEADY ON HIS FEET AND USES THE WALKER APPROPRIATELY. CALL LIGHT WITHIN REACH, BED AT LOWEST LEVEL, NO DISTRESS NOTED.
[2025-07-20 16:01] VITALS: BP 109/77
--- NOTE | 2025-07-20 18:37 | NUR ---
SHIFT SUMMARY PATIENT IS A&OX3-4. HE IS COOPERATIVE BUT IN IMPULSIVE WITH GETTING UP WITHOUT CALLING, HE IS NOT USING THE CALL SYSTEM. HE DID HAVE A SHOWER TODAY. THE LEFT ARM IV WAS LEAKING AND SO WAS REMOVED. THE TEGADERM ON THE RIGHT WAS REPLACED TODAY AFTER THE SHOWER. PLAN IS TO CHANGE THE DIABETIC MEDICATIONS TO ALL ORAL SO THAT HE CAN SAFELY MANAGE HIS MEDS AT HOME. HE HAS BEEN RESPONDING TO THIS WELL. HE IS CURRENTLY UP IN THE CHAIR EATING DINNER. CALL LIGHT IS WITHIN REACH.
[2025-07-20 19:59] VITALS: BP 113/79
[2025-07-20] MEDS ORDERED: Insulin Glargine 100 Unit/ML 3 ML SYR SC SCH (21:00)
[2025-07-21 04:35] VITALS: BP 109/72
[2025-07-21 07:31] VITALS: BP 111/79
[2025-07-21] MEDS ORDERED: ALOGLIPTIN25 M1 PO (14:06)
[2025-07-21] MEDS ORDERED: METF500 PO (14:07)
[2025-07-21] MEDS ORDERED: LOSA25 PO (14:07)
[2025-07-21] MEDS ORDERED: GLIP5 PO (14:07)
== END 2025-07-21 14:52 | disposition home health service (06) | DRG 637 ==
LOC: ER 14:47 → ICUE 18:02 → MEDS 18:02 → ICUE 19:45 → MEDS 07-14 10:31 → ENPENDDIS 07-18 17:09 → EDPENDDIS 07-18 17:09 → MEDS 07-21 14:52
PROVIDERS: Internal Medicine; Nurse Practitioner Acute Care; Student in an Organized Health Care Education/Training Program; ADMIT Student in an Organized Health Care Education/Training Program
PROC: 0T9B70Z Drainage of Bladder with Drainage Device, Via Natural or Artificial Opening (ICD-10-PCS; principal; 2025-07-11)
PROC: 3E02340 Introduction of Influenza Vaccine into Muscle, Percutaneous Approach (ICD-10-PCS; 2025-07-11)
DX: E11.10 Type 2 diabetes mellitus with ketoacidosis without coma (principal); G93.41 Metabolic encephalopathy; U07.1 COVID-19; I10 Essential (primary) hypertension; I49.3 Ventricular premature depolarization; E03.9 Hypothyroidism, unspecified; E87.6 Hypokalemia; Z23 Encounter for immunization; Z79.890 Hormone replacement therapy; Z79.899 Other long term (current) drug therapy; Z87.442 Personal history of urinary calculi; Z91.198 Patient's noncompliance with other medical treatment and regimen for other reason
CPT/HCPCS: 0202U; 36415; 51702; 70450; 71045; 80048; 80053; 80061; 81001; 82010; 82248; 82803; 82947; 83036; 83605; 83735; 84100; 84443; 85025; 85610; 85730; 87040; 87086; 93005; 93010; 96360-59; 97110; 97112; 97116; 97162; 97530; 99285-25; A9270; J1650; J1815; J3480; J7030; J7042; J7050; J7060; J7120